=== PATIENT | male | born 1960 | race Hispanic/Latino ===

== ENCOUNTER 2018-06-21 09:18 | Emergency (ER) | payer OTHER ==
[~2018-06-21 09:18] MED LIST: ASPI-1005 PO; ATOR20TA65 PO; CARV3.1262 PO; CLOP75TA32 PO; FURO-151 PO; LOSA25TA41 PO; METF-446 PO; PANT40TA25 PO; QUET300T44 PO; SERT100T12 PO
[2018-06-21] MEDS ORDERED: KETOROLAC TROMETHAMINE 30MG/ML ONE (09:52)
== END 2018-06-21 10:29 | disposition home or self-care (01) ==
LOC: EDH 09:18
DX: S83.8X2A Sprain of other specified parts of left knee, initial encounter (principal); X50.0XXA Overexertion from strenuous movement or load, initial encounter; Y93.89 Activity, other specified; Y92.89 Other specified places as the place of occurrence of the external cause; Y99.8 Other external cause status
CPT/HCPCS: 73562; 96372; 99283; J1885

== ENCOUNTER 2018-09-25 10:21 | Observation (INO) | payer OTHER ==
[2018-09-25] VITALS (8 sets, daily range): BP systolic 134–210; BP diastolic 83–109
[~2018-09-25] VITALS: Ht 175.3 cm; Wt 129.3 kg
[2018-09-25] MEDS ORDERED: ENOXAPARIN SODIUM 40 MG/0.4 ML SYRINGE SQ ONE (11:21)
[2018-09-25 11:30] LABS: BASOPHILS % (AUTO) 0.5 % (0.0-5.0); EOSINOPHILS % (AUTO) 4.6 % (0.0-8.0); HEMATOCRIT 40.6 % (42-54); LYMPHOCYTES % (AUTO) 21.8 % (21.0-51.0); MEAN CORPUSCULAR HEMOGLOBIN 29.9 pg (27.0-33.0); MEAN CORPUSCULAR VOLUME 87.9 fL (79-99); MONOCYTES % (AUTO) 8.1 % (3.0-13.0); PLATELET COUNT (AUTO) 258 K/uL (130-400); RED BLOOD CELL COUNT(AUTO) 4.61 MIL/uL (4.50-6.20); RED CELL DISTRIBUTION WIDTH 14.9 % (11.0-15.5); WHITE BLOOD COUNT (AUTO) 6.7 K/uL (4.8-10.8)
[2018-09-25 11:35] LABS: CREATININE 0.8 mg/dL (0.5-1.5); POTASSIUM 3.6 mmol/L (3.5-5.1)
[2018-09-25 11:39] LABS: ALBUMIN 3.7 g/dL (3.5-5.0); BILIRUBIN,DIRECT 0.1 mg/dL (0.0-0.3); BILIRUBIN,TOTAL 0.4 mg/dL (0.2-1.0); TOTAL PROTEIN, SERUM 7.3 g/dL (6.0-8.3)
[2018-09-25] MEDS ORDERED: GUAIFENESIN SUGAR-FREE 100 MG/5 ML UDCUP PO PRN (11:45)
[2018-09-25] MEDS ORDERED: DIPHENHYDRAMINE HCL 25 MG CAPSULE PO PRN (11:45)
[2018-09-25] MEDS ORDERED: SODIUM CHLORIDE 0.9% 10 ML VIAL IVP PRN (11:45)
[2018-09-25] MEDS ORDERED: ONDANSETRON HCL 4 MG/2 ML VIAL IVP PRN (11:45)
[2018-09-25] MEDS ORDERED: MAG HYDROX/AL HYDROX/SIMETH ES 30 ML SUSP UDCUP PO PRN (11:45)
[2018-09-25] MEDS ORDERED: LACTULOSE 20 GM/30 ML UDCUP PO PRN (11:45)
[2018-09-25] MEDS ORDERED: ACETAMINOPHEN 325 MG TAB PO PRN (11:45)
[2018-09-25] MEDS ORDERED: MORPHINE SULFATE 4 MG/1ML SYG IM PRN (13:30)
[2018-09-25 13:40] LABS: CREATINE KINASE, TOTAL 58 U/L (21-232); MYOGLOBIN 38 ng/mL (10-92); TROPONIN I < 0.04 ng/mL (0.00-0.06)
[2018-09-25] MEDS ORDERED: REGADENOSON 0.4 MG/5 ML PF SYG IVP SCH (13:45)
[2018-09-25] MEDS ORDERED: NAPROXEN 500 MG TABLET PO PRN (14:45)
[2018-09-25] MEDS: METFORMIN HCL 500 MG TABLET PO SCH (17:00)
[2018-09-25] MEDS: NITROGLYCERIN 0.4 MG SL TAB SL PRN ×3 (18:46→19:43)
--- NOTE | 2018-09-25 19:26 | NUR ---
CHEST PAIN Received pt having chest pain,states 8/10.Pt was medicated with Morphine and ntg per Jacklyn KELLEY.Placed pt on at 2lpm via nC.Vital signs taken.Bp 130/80,heart rate 60's sinus rhythm,resp sat 97%.Advised to stay in bed. at at bedside.Paged Dr Gomez.
--- NOTE | 2018-09-25 19:43 | NUR ---
NTG Pt still having chest pain,nitro sublingual given.Paged Dr Gomez again.
[2018-09-25 19:57] LABS: CREATINE KINASE, TOTAL 50 U/L (21-232); MYOGLOBIN 41 ng/mL (10-92); TROPONIN I < 0.04 ng/mL (0.00-0.06)
[2018-09-25] MEDS ORDERED: HYDROMORPHONE PCA 10 MG/50 ML 50 ML IV PRN (20:00)
--- NOTE | 2018-09-25 20:00 | NUR ---
MD Dr SINGH called back,notified of pt.s having chest pain.Stress test result and cardiac enzymes result relayed to him.He ordered to start pt on leadership development manager dilaudid.
[2018-09-25] MEDS: TRAMADOL HCL 50 MG TABLET PO SCH (21:00)
[2018-09-25] MEDS: VALSARTAN PO SCH (21:00)
[2018-09-25] MEDS: SACUBITRIL PO SCH (21:00)
[2018-09-25] MEDS ORDERED: ENOXAPARIN SODIUM 1 MG/KG SQ SCH (21:00)
[2018-09-25] MEDS: QUETIAPINE FUMARATE 100 MG TAB PO SCH (22:26)
[2018-09-25] MEDS: CARVEDILOL 12.5 MG TABLET PO SCH (22:27)
[2018-09-25] MEDS: ATORVASTATIN CALCIUM 20 MG TABLET PO SCH (22:27)
[2018-09-25] MEDS ORDERED: SODIUM CHLORIDE 0.9% 1000ML 1,000 ML IV PRN (23:45)
[2018-09-26] VITALS: BP 144/96
[2018-09-26 01:30] LABS: CREATINE KINASE, TOTAL 48 U/L (21-232); MYOGLOBIN 26 ng/mL (10-92); TROPONIN I < 0.04 ng/mL (0.00-0.06)
[2018-09-26] MEDS ORDERED: NAPR-1023 PO (02:00)
[2018-09-26] MEDS ORDERED: CARV25TA PO (02:00)
[2018-09-26] MEDS ORDERED: CARV12.511 PO (02:00)
[2018-09-26] MEDS ORDERED: TRAM50TA2 PO (02:00)
[2018-09-26] MEDS ORDERED: SACU1TAB PO (02:00)
[2018-09-26] MEDS ORDERED: PRED20TA3 PO (02:00)
[2018-09-26 04:10] VITALS: BP 136/96
[2018-09-26 05:12] LABS: HEMATOCRIT 38.4 % (42-54); MEAN CORPUSCULAR HEMOGLOBIN 29.4 pg (27.0-33.0); MEAN CORPUSCULAR HGB CONC 33.5 g/dL (32.0-36.0); MEAN CORPUSCULAR VOLUME 87.9 fL (79-99); PLATELET COUNT (AUTO) 258 K/uL (130-400); RED BLOOD CELL COUNT(AUTO) 4.37 MIL/uL (4.50-6.20); RED CELL DISTRIBUTION WIDTH 14.9 % (11.0-15.5); WHITE BLOOD COUNT (AUTO) 5.5 K/uL (4.8-10.8)
[2018-09-26 05:24] LABS: ALBUMIN 3.3 g/dL (3.5-5.0); BILIRUBIN,DIRECT 0.1 mg/dL (0.0-0.3); BILIRUBIN,TOTAL 0.3 mg/dL (0.2-1.0); POTASSIUM 3.5 mmol/L (3.5-5.1); TOTAL PROTEIN, SERUM 6.7 g/dL (6.0-8.3)
--- NOTE | 2018-09-26 06:07 | NUR ---
CHEST PAIN FREE Pt slept well.Denies chest pain.blind eyeletter dilaudid in use.
[2018-09-26 08:00] VITALS: BP 119/78
[2018-09-26] MEDS ORDERED: METHYLPREDNISOLONE 4 MG TABLET PO SCH (08:15)
[2018-09-26] MEDS: PANTOPRAZOLE SODIUM 40 MG TABLET.DR PO SCH (08:55)
[2018-09-26] MEDS: SERTRALINE HCL 50 MG TABLET PO SCH (08:55)
[2018-09-26] MEDS: PREDNISONE 10 MG TABLET PO SCH (08:55)
[2018-09-26] MEDS: METFORMIN HCL 500 MG TABLET PO SCH ×2 (08:55→17:53)
[2018-09-26] MEDS: TRAMADOL HCL 50 MG TABLET PO SCH ×2 (08:56→20:02)
[2018-09-26] MEDS: FUROSEMIDE 20 MG TABLET PO SCH (08:56)
[2018-09-26] MEDS: ASPIRIN 81MG TAB.CHEW PO SCH (08:56)
[2018-09-26] MEDS: CARVEDILOL 25 MG TABLET PO SCH (08:57)
[2018-09-26] MEDS: CLOPIDOGREL BISULFATE 75 MG TAB PO SCH (08:58)
[2018-09-26] MEDS: VALSARTAN PO SCH ×2 (09:00→21:00)
[2018-09-26] MEDS: SACUBITRIL PO SCH ×2 (09:00→21:00)
[2018-09-26] MEDS: ENOXAPARIN SODIUM 120 MG/0.8ML SQ SCH (09:01)
[2018-09-26 12:00] VITALS: BP 161/103
--- NOTE | 2018-09-26 15:00 | NUR ---
INITIAL Met w pt and spouse at bedside; pt aaox3, disabled for several years, cabg 2 years ago; no dme, adnp of adls, using dilaudid endoscopy support specialist pump at this timel bmi 43, adivsed re weight contorl for better pain/dm/cardiac management Addendum: 09/26/18 at 8134 by STACY RO RN CM Amended: Links added.
[2018-09-26 16:00] VITALS: BP 134/91
[2018-09-26] MEDS: ATORVASTATIN CALCIUM 20 MG TABLET PO SCH (20:03)
[2018-09-26] MEDS: CARVEDILOL 12.5 MG TABLET PO SCH (20:03)
[2018-09-26] MEDS: QUETIAPINE FUMARATE 100 MG TAB PO SCH (20:03)
[2018-09-26 20:13] VITALS: BP 119/90
[2018-09-27 00:09] VITALS: BP 127/80
[2018-09-27 04:48] VITALS: BP 133/96
[2018-09-27 07:30] VITALS: BP 134/87
[2018-09-27] MEDS: TRAMADOL HCL 50 MG TABLET PO SCH (08:32)
[2018-09-27] MEDS: PANTOPRAZOLE SODIUM 40 MG TABLET.DR PO SCH (08:33)
[2018-09-27] MEDS: FUROSEMIDE 20 MG TABLET PO SCH (08:33)
[2018-09-27] MEDS: SERTRALINE HCL 50 MG TABLET PO SCH (08:33)
[2018-09-27] MEDS: ASPIRIN 81MG TAB.CHEW PO SCH (08:33)
[2018-09-27] MEDS: CLOPIDOGREL BISULFATE 75 MG TAB PO SCH (08:33)
[2018-09-27] MEDS: PREDNISONE 10 MG TABLET PO SCH (08:33)
[2018-09-27] MEDS: METFORMIN HCL 500 MG TABLET PO SCH (08:33)
[2018-09-27 08:36] VITALS: BP 134/87
[2018-09-27] MEDS: SACUBITRIL PO SCH (08:36)
[2018-09-27] MEDS: CARVEDILOL 25 MG TABLET PO SCH (08:36)
[2018-09-27] MEDS: VALSARTAN PO SCH (08:36)
[2018-09-27] MEDS: ENOXAPARIN SODIUM 120 MG/0.8ML SQ SCH (09:01)
--- NOTE | 2018-09-27 12:42 | NUR ---
PATIENT DISCHARGE PATIENT DISCHARGE, IV DISCONTINUED, CATHLON INTACT, BLEEDING CONTROLLED, PATIENT TOLERATED WITHOUT INCIDENT.
== END 2018-09-27 12:45 | disposition home or self-care (01) ==
LOC: EDH 10:21 → EDHIP 10:40 → 3CH 12:27
PROVIDERS: ADMIT Internal Medicine; ATTEND Internal Medicine
DX: R07.89 Other chest pain (principal); E11.9 Type 2 diabetes mellitus without complications; E78.5 Hyperlipidemia, unspecified; I25.10 Atherosclerotic heart disease of native coronary artery without angina pectoris; I13.0 Hypertensive heart and chronic kidney disease with heart failure and stage 1 through stage 4 chronic kidney disease, or unspecified chronic kidney disease; N18.2 Chronic kidney disease, stage 2 (mild); I50.9 Heart failure, unspecified; I25.2 Old myocardial infarction; M19.90 Unspecified osteoarthritis, unspecified site; J44.9 Chronic obstructive pulmonary disease, unspecified; Z95.1 Presence of aortocoronary bypass graft; Z95.810 Presence of automatic (implantable) cardiac defibrillator
CPT/HCPCS: 36415 ×2; 78452; 80048; 80053; 80076 ×2; 82550 ×3; 82948 ×5; 83874 ×3; 84484 ×3; 85025; 85027; 93005; 93017; 96365; 96372 ×3; 99284; A9500 ×2; G0378 ×48; J1170 ×2; J1650 ×3; J2270; J2785; J7509; J7512 ×2; 96374

== ENCOUNTER 2019-01-12 07:17 | Day surgery (SDC) | payer OTHER ==
[2019-01-11 15:54] LABS: BASOPHILS % (AUTO) 0.7 % (0.0-5.0); EOSINOPHILS % (AUTO) 4.1 % (0.0-8.0); LYMPHOCYTES % (AUTO) 21.2 % (21.0-51.0); MEAN CORPUSCULAR HEMOGLOBIN 30.1 pg (27.0-33.0); MEAN CORPUSCULAR VOLUME 88.7 fL (79-99); MONOCYTES % (AUTO) 10.2 % (3.0-13.0); NEUTROPHILS % (AUTO) 63.8 % (40.0-77.0); NUCLEATED RED BLOOD CELLS 0.1 % (0.0-0.19); PLATELET COUNT (AUTO) 271 K/uL (130-400); RED BLOOD CELL COUNT(AUTO) 4.62 MIL/uL (4.50-6.20); RED CELL DISTRIBUTION WIDTH 14.5 % (11.0-15.5); WHITE BLOOD COUNT (AUTO) 7.5 K/uL (4.8-10.8)
[2019-01-11 16:04] VITALS: BP 169/101
[2019-01-11 16:04] LABS: POTASSIUM 4.1 mmol/L (3.5-5.1)
[~2019-01-12] VITALS: Ht 177.8 cm; Wt 137.6 kg
[2019-01-12] VITALS (12 sets, daily range): BP systolic 107–142; BP diastolic 68–86
[~2019-01-12 07:17] MED LIST changes: -ATOR20TA65 PO; +CARV12.511 PO; -CARV3.1262 PO; +CEFAZOLIN 3GM /D5W 100ML 100 ML IV SCH; -CLOP75TA32 PO; -FURO-151 PO; +FURO20TA4 PO; -LOSA25TA41 PO; +NAPR-1023 PO; +PRED20TA3 PO; +ROSU40TA21 PO; +SACU1TAB PO
[2019-01-12] MEDS ORDERED: SODIUM CHLORIDE 0.9% 1000ML 1,000 ML IV ONE (10:00)
[2019-01-12] MEDS ORDERED: CEFAZOLIN SODIUM 1 GM VIAL ONE (10:00)
[2019-01-12] MEDS ORDERED: LIDOCAINE PF 2% 5ML ABBOJECT ONE (10:09)
[2019-01-12] MEDS ORDERED: FENTANYL CITRATE PF 50 MCG/1 ML 2ML VIAL ONE (10:10)
[2019-01-12] MEDS ORDERED: PROPOFOL 10 MG/ML 20ML VIAL IV ONE (10:10)
[2019-01-12] MEDS ORDERED: ONDANSETRON HCL 4 MG/2 ML VIAL ONE (11:21)
[2019-01-12] MEDS ORDERED: KETOROLAC TROMETHAMINE 30MG/ML ONE (11:22)
[2019-01-12] MEDS ORDERED: TYL3 PO (11:32)
[2019-01-12] MEDS ORDERED: CEPH500B PO (11:32)
[2019-01-12] MEDS ORDERED: MEPERIDINE-PF 25 MG/ML SYG ONE ×2 (11:46→11:56)
--- NOTE | 2019-01-12 13:01 | NUR ---
PT. VS STABLE AND NO COMPLICATION WITH PROCEDURE. PT. GIVEN CRUTCH INSTRUCTION, RX GIVEN TO AND F/U APPT IS SCHEDULED. PT. LEFT VIA WHEEL CHAIR IN PVT CAR.
== END 2019-01-12 13:01 ==
LOC: DAH 07:17
PROVIDERS: ATTEND Orthopaedic Surgery
DX: S83.242A Other tear of medial meniscus, current injury, left knee, initial encounter (principal); M23.222 Derangement of posterior horn of medial meniscus due to old tear or injury, left knee; M22.42 Chondromalacia patellae, left knee; Z79.84 Long term (current) use of oral hypoglycemic drugs; Z79.899 Other long term (current) drug therapy; Z95.1 Presence of aortocoronary bypass graft; E11.40 Type 2 diabetes mellitus with diabetic neuropathy, unspecified; E66.9 Obesity, unspecified; E78.5 Hyperlipidemia, unspecified; G47.33 Obstructive sleep apnea (adult) (pediatric); J44.9 Chronic obstructive pulmonary disease, unspecified; Z95.0 Presence of cardiac pacemaker; F32.9 Major depressive disorder, single episode, unspecified; G89.29 Other chronic pain; X58.XXXA Exposure to other specified factors, initial encounter; Y93.89 Activity, other specified; Y92.89 Other specified places as the place of occurrence of the external cause; Y99.8 Other external cause status
CPT/HCPCS: 29881; 36415; 80048; 82948 ×2; 85025; A4215; A4221; A4223; A4606; A4649 ×2; A4930 ×2; A5120; A6223; J0690; J1885; J2001; J2175 ×2; J2405; J2704; J3010; J7030

== ENCOUNTER → 2022-05-31 | Outpatient (CLI) | payer OTHER ==
[~2022-05-31] MED LIST changes: -CEFAZOLIN 3GM /D5W 100ML 100 ML IV SCH; +CEPH500B PO; -PANT40TA25 PO; +PANT40TA54 PO; -PRED20TA3 PO; +QUET300T19 PO; -QUET300T44 PO; +SERT-440 PO; -SERT100T12 PO; +TYL3 PO
[2022-05-31 16:31] LABS: CREATININE 1.1 mg/dL (0.5-1.5); POTASSIUM 3.6 mmol/L (3.5-5.1)
== END | disposition home or self-care (01) ==
LOC: LAB 14:07
PROVIDERS: ATTEND Internal Medicine Cardiovascular Disease
DX: I10 Essential (primary) hypertension (principal); E11.9 Type 2 diabetes mellitus without complications
CPT/HCPCS: 36415; 80048

== ENCOUNTER → 2022-06-14 | Outpatient (CLI) | payer OTHER ==
[2022-06-14 12:55] LABS: CREATININE 1.4 mg/dL (0.5-1.5); POTASSIUM 3.3 mmol/L (3.5-5.1)
== END | disposition home or self-care (01) ==
LOC: LAB 10:12
PROVIDERS: ATTEND Internal Medicine Cardiovascular Disease
DX: I10 Essential (primary) hypertension (principal); E11.9 Type 2 diabetes mellitus without complications
CPT/HCPCS: 36415; 80048

== ENCOUNTER → 2022-06-30 | Outpatient (CLI) | payer OTHER ==
[2022-06-30 14:13] LABS: CREATININE 1.1 mg/dL (0.5-1.5); POTASSIUM 3.7 mmol/L (3.5-5.1)
== END | disposition home or self-care (01) ==
LOC: LAB 10:57
PROVIDERS: ATTEND Internal Medicine Cardiovascular Disease
DX: I10 Essential (primary) hypertension (principal)
CPT/HCPCS: 36415; 80048